=== PATIENT | male | born 1985 | race Caucasian/White ===

== ENCOUNTER 2016-08-29 10:37 | Emergency (ER) | payer OTHER ==
[~2016-08-29] VITALS: Ht 170.2 cm; Wt 43.1 kg
[2016-08-29] MEDS ORDERED: IV NORMAL SALINE 1000ML BAG 1,000 ML IV SCH (11:20)
--- NOTE | 2016-08-29 11:20 | PHYS DOC ---
Past Medical History Past Medical History: Other Additional Past Medical Histor: MR, CEREBRAL PALSY Past Surgical History: Other Additional Past Surgical Histo: eye muscle surgery, ear tubes Alcohol Use: None Drug Use: None Adult General Chief Complaint Chief Complaint: CONTISPATION HPI HPI Patient is a 31 year old occasional male who presents with pain. According to his caregiver and mom he's been having constipation for the last several months. His caregiver takes care of him throughout the week and mom has the weekend. He both state he's had very small bowel movements over the last couple of days and a large once 4-5 days ago. He does recently have a history of constipation but prior to that never had issues. According to his caregiver last night he vomited shock covered material and has been acting normal since. Currently he will answer yes no questions and denies any abdominal pain. Review of Systems Review of Systems Constitutional: Denies fever or chills [] Eyes: Denies change in visual acuity, redness, or eye pain [] HENT: Denies nasal congestion or sore throat [] Respiratory: Denies cough or shortness of breath [] Cardiovascular: No additional information not addressed in HPI [] GI: Denies abdominal pain, nausea, vomiting, bloody stools or diarrhea [] : Denies dysuria or hematuria [] Musculoskeletal: Denies back pain or joint pain [] Integument: Denies rash or skin lesions [] Neurologic: Denies headache, focal weakness or sensory changes [] Endocrine: Denies polyuria or polydipsia [] Current Medications Current Medications Current Medications Medications (Trade) Dose Ordered Sig/Yas Start Time Stop Time Status Last Admin Dose Admin Docusate Sodium (Enemeez) 283 mg 1X ONCE 08/29/16 13:00 08/29/16 13:01 DC 08/29/16 13:00 283 MG Docusate Sodium 283 mg 283 mg 1X ONCE 08/29/16 15:00 08/29/16 15:01 DC Sodium Chloride (Iv Sodium Chloride 0.9% 1000ml Bag) 1,000 ml @ 1,000 mls/hr 1X ONCE 08/29/16 15:30 08/29/16 16:29 Allergies Allergies Allergies Coded Allergies Type Severity Reaction Last Updated Verified No Known Drug Allergies 08/29/16 No Physical Exam Physical Exam Constitutional: Well developed, well nourished, no acute distress, non-toxic appearance. [] HENT: Normocephalic, atraumatic, bilateral external ears normal, oropharynx moist, no oral exudates, nose normal. [] Eyes: PERRLA, EOMI, conjunctiva normal, no discharge. [] Neck: Normal range of motion, no tenderness, supple, no stridor. [] Cardiovascular:Heart rate regular rhythm, no murmur [] Lungs & Thorax: Bilateral breath sounds clear to auscultation [] Abdomen: Bowel sounds normal, soft, no tenderness, no masses, no pulsatile masses, patient wearing depends. [] Skin: Warm, dry, no erythema, no rash. [] Back: No tenderness, no CVA tenderness. [] Extremities: No tenderness, no cyanosis, no clubbing, ROM intact, no edema. [] Neurologic: Alert and interactive, a verbal. Current Patient Data Vital Signs Vital Signs Date Time Temp Pulse Resp B/P Pulse Ox O2 Delivery O2 Flow Rate FiO2 08/29/16 12:55 81 105/67 97 08/29/16 11:01 98.1 18 Room Air 98.1 Lab Values Laboratory Tests Test 08/29/16 12:20 White Blood Count 17.0x10^3/uL (4.0-11.0) H Red Blood Count 3.78x10^6/uL (4.30-5.70) L Hemoglobin 11.3g/dL (13.0-17.5) L Hematocrit 34.0% (39.0-53.0) L Mean Corpuscular Volume 90fL (79-100) Mean Corpuscular Hemoglobin 30pg (25-35) Mean Corpuscular Hemoglobin Concent 33g/dL (31-37) Red Cell Distribution Width 12.3% (11.5-14.5) Platelet Count 334x10^3/uL (140-400) Neutrophils (%) (Auto) 84% (31-73) H Lymphocytes (%) (Auto) 10% (24-48) L Monocytes (%) (Auto) 5% (0-9) Eosinophils (%) (Auto) 1% (0-3) Basophils (%) (Auto) 0% (0-3) Neutrophils # (Auto) 14.3x10^3uL (1.8-7.7) H Lymphocytes # (Auto) 1.7x10^3/uL (1.0-4.8) Monocytes # (Auto) 0.8x10^3/uL (0.0-1.1) Eosinophils # (Auto) 0.2x10^3/uL (0.0-0.7) Basophils # (Auto) 0.1x10^3/uL (0.0-0.2) Platelet Estimate Pending Prothrombin Time 14.3SEC (11.7-14.0) H Prothrombin Time INR 1.2 (0.8-1.1) H PTT 30SEC (24-38) Sodium Level 142mmol/L (136-145) Potassium Level 4.7mmol/L (3.5-5.1) Chloride Level 104mmol/L (98-107) Carbon Dioxide Level 30mmol/L (21-32) Anion Gap 8 (6-14) Blood Urea Nitrogen 18mg/dL (8-26) Creatinine 0.8mg/dL (0.7-1.3) Estimated GFR (Cockcroft-Gault) 112.0 Glucose Level 92mg/dL (70-99) Calcium Level 8.9mg/dL (8.5-10.1) Total Bilirubin 0.5mg/dL (0.2-1.0) Direct Bilirubin 0.1mg/dL (0.0-0.2) Aspartate Amino Transferase (AST) 19U/L (15-37) Alanine Aminotransferase (ALT) 25U/L (16-63) Alkaline Phosphatase 74U/L (46-116) Total Protein 7.5g/dL (6.4-8.2) Albumin 3.7g/dL (3.4-5.0) Lipase 159U/L (73-393) Laboratory Tests 08/29/16 12:20 Laboratory Tests 08/29/16 12:20 EKG EKG [] Radiology/Procedures Radiology/Procedures [facility] [address] [place] [address] IMAGING REPORT Signed PATIENT: BOZENA CHACON ACCOUNT: [id number] : 1985 LOCATION: ER AGE: 31 SEX: M EXAM STATUS: PRE ER ORD. PHYSICIAN: JAZ GARCIA MD REASON: abd pain, CONSTIPATION, X A FEW DAYS PROCEDURE: ACUTE ABDOMEN SERIES Acute abdomen series History: Abdominal pain, constipation. Comparison: 02/04/2005. Findings: Frontal view of the chest. Cardiac silhouette appears within normal limits for size. No pneumoperitoneum or pneumothorax is identified. No acute infiltrate is seen. Supine and upright views of the abdomen. No dilated loops of bowel are seen. Moderate colonic stool is present. Impression: 1. No acute abnormality identified in the chest. 2. Moderate colonic stool. DICTATED and SIGNED BY: GILLIAN CARDOSO MD DATE: 08/29/16 1017 CC: JAZ GARCIA MD; LAMBERT MCCLOUD MD ~ Impressions: constipation Course & Med Decision Making Course & Med Decision Making Pertinent Labs and Imaging studies reviewed. (See chart for details) Abdominal series shows constipation, he received 2 enemas without any success. He received a liter of fluids, he still denies any abdominal pain he's had no nausea vomiting. He is being discharged home with mag citrate. He and his mom and caregiver are all agreeable to plan. Return precautions given for worsening pain, or any other concerns. Dragon Disclaimer Dragon Disclaimer This electronic medical record was generated, in whole or in part, using a voice recognition dictation system. Departure Departure Impression: Primary Impression: Constipation Disposition: 01 HOME, SELF-CARE Condition: STABLE Referrals: LAMBERT MCCLOUD MD (PCP) Patient Instructions: Constipation, Adult Additional Instructions: He received enemas and he looks well. He is being discharged home and he can use mag citrate Scripts Magnesium Citrate 296 Ml [id number] Ml PO ONCE #296 ML Drink 1/2 now and if no BM in 2 hours, drink the remainder. Prov:JAZ GARCIA MD 08/29/16 Problem Qualifiers Primary Impression: Constipation Constipation type: unspecified constipation type Qualified Code: K59.00 - Constipation, unspecified JAZ GARCIA MD Aug 29, 2016 11:20
--- NOTE | 2016-08-29 12:21 | RAD ---
Acute abdomen series History: Abdominal pain, constipation. Comparison: 02/04/2005. Findings: Frontal view of the chest. Cardiac silhouette appears within normal limits for size. No pneumoperitoneum or pneumothorax is identified. No acute infiltrate is seen. Supine and upright views of the abdomen. No dilated loops of bowel are seen. Moderate colonic stool is present. Impression: 1. No acute abnormality identified in the chest. 2. Moderate colonic stool.
[2016-08-29 12:44] LABS: BASO # 0.1 x10^3/uL (0.0-0.2); BASO % 0 % (0-3); EOS % 1 % (0-3); HEMOGLOBIN 11.3 g/dL (13.0-17.5); LYMPH # 1.7 x10^3/uL (1.0-4.8); LYMPH % 10 % (24-48); MEAN CORPUSCULAR HEMOGLOBIN 30 pg (25-35); MEAN CORPUSCULAR HGB CONC 33 g/dL (31-37); MEAN CORPUSCULAR VOLUME 90 fL (79-100); MONO % 5 % (0-9); NEUT % 84 % (31-73); PLATELET COUNT 334 x10^3/uL (140-400); RED BLOOD COUNT 3.78 x10^6/uL (4.30-5.70); RED CELL DISTRIBUTION WIDTH 12.3 % (11.5-14.5)
[2016-08-29] MEDS ORDERED: DOCUSATE SODIUM 283 MG/5 ML ENEMA. PR ONE ×2 (13:00→15:00)
[2016-08-29 13:01] LABS: INR 1.2 (0.8-1.1); PROTHROMBIN TIME PATIENT 14.3 SEC (11.7-14.0)
[2016-08-29 13:07] LABS: CALCIUM 8.9 mg/dL (8.5-10.1); CREATININE 0.8 mg/dL (0.7-1.3); POTASSIUM 4.7 mmol/L (3.5-5.1)
[2016-08-29 13:13] LABS: ALBUMIN 3.7 g/dL (3.4-5.0); DIRECT BILIRUBIN 0.1 mg/dL (0.0-0.2); TOTAL BILIRUBIN 0.5 mg/dL (0.2-1.0); TOTAL PROTEIN 7.5 g/dL (6.4-8.2)
[2016-08-29] MEDS ORDERED: MAGN296S PO (15:14)
[2016-08-29] MEDS ORDERED: IV NORMAL SALINE 1000ML BAG 1,000 ML IV ONE (15:30)
[2016-08-29 15:40] VITALS: BP 97/52
[2016-08-29 17:07] LABS: PLT ESTIMATE ADEQUATE (ADEQUATE)
== END 2016-08-29 16:13 | disposition home or self-care (01) ==
LOC: ER 10:37
DX: K59.00 Constipation, unspecified (principal); R11.10 Vomiting, unspecified
CPT/HCPCS: 74022; 80048; 80076; 83690; 85007; 85027; 85610; 85730; 96360; 99285; J7030